=== PATIENT | male | born 1935 | race Caucasian/White ===

== ENCOUNTER 2021-03-01 16:15 | Emergency (ER) | payer OTHER ==
[~2021-03-01] VITALS: Ht 167.6 cm; Wt 68.0 kg
[~2021-03-01 16:15] MED LIST: ALBU.083IS IH; ALBU8HFA2 INH; ALBU90OI INH; ASPI81CH PO; ATECHL PO; ATEN50 PO; BUDE6HFA INH; CODE30 PO; COLE5P PO; COLESTIPOL HCL PO; CYAN1000 PO; FORM12IH IH; LISI5 PO; LORA10ER PO; MOME220I IH; MOMENI; MONT10T PO; MOXI400 PO; THEO300ERC PO; TIOT18 IH; VALS80 PO
[2021-03-01 16:45] LABS: BASOPHILS ABSOLUTE AUTO 0.04 K/mm3 (0.00-0.23); BASOPHILS PERCENT AUTO 1 % (0-2); EOSINOPHILS ABSOLUTE AUTO 0.85 K/mm3 (0.00-0.68); EOSINOPHILS PERCENT AUTO 13 % (0-6); Hematocrit 35.2 % (37.0-53.0); Hemoglobin 11.4 g/dL (13.5-17.5); IMMATURE GRAN ABSOLUTE AUTO 0.01 K/mm3 (0.00-0.10); IMMATURE GRAN PERCENT AUTO 0 % (0-1); LYMPHOCYTES ABSOLUTE AUTO 1.42 K/mm3 (0.84-5.20); LYMPHOCYTES PERCENT AUTO 22 % (21-46); MONOCYTES ABSOLUTE AUTO 0.73 K/mm3 (0.16-1.47); MONOCYTES PERCENT AUTO 12 % (4-13); Mean Corpuscular HGB Conc 32.4 g/dL (31.5-36.5); Mean Corpuscular Volume 96 fL (80-100); Mean Platelet Volume 11.3 fL (9.1-12.4); NEUTROPHILS PERCENT AUTO 52 % (41-73); Platelet Count 130 K/mm3 (150-400); RDW Coefficient Variation 12.4 % (11.7-14.2); RDW Standard Deviation 43.6 fL (35.1-46.3); Red Blood Cell Count 3.68 M/mm3 (4.30-5.90); White Blood Cell Count 6.35 K/mm3 (4.00-11.30)
[2021-03-01 17:03] LABS: Alanine Aminotransfer (ALT/SGP 14 U/L (12-78); Albumin, Blood 3.3 g/dL (3.4-5.0); Albumin/Globulin Ratio 1.1 (0.8-1.8); Alk Phos 57 U/L (50-136); Anion Gap 3 mmol/L (6-16); Aspartate Aminotrans (AST/SGOT 12 U/L (12-37); Bilirubin, Total 0.5 mg/dL (0.1-1.0); Blood Urea Nitrogen 34 mg/dL (8-24); Bun/Creatinine Ratio 27.2 (12.0-20.0); CO2, Blood 30 mmol/L (21-32); Calcium, Blood 9.1 mg/dL (8.5-10.1); Chloride, Blood 107 mmol/L (98-108); Creatinine, Blood 1.25 mg/dL (0.60-1.20); Globulin, Blood 2.9 g/dL (2.2-4.0); Glomerular Filtration Rate 55 (60-); Glucose, Blood 89 mg/dL (70-99); Potassium, Blood 4.3 mmol/L (3.5-5.5); Sodium, Blood 140 mmol/L (136-145); Total Protein, Blood 6.2 g/dL (6.4-8.2); Troponin I <0.015 ng/mL (0.000-0.040)
== END 2021-03-01 21:03 | disposition home or self-care (01) ==
LOC: ER 16:15
PROVIDERS: Student in an Organized Health Care Education/Training Program
DX: Z03.89 Encounter for observation for other suspected diseases and conditions ruled out (principal); I10 Essential (primary) hypertension; J44.9 Chronic obstructive pulmonary disease, unspecified; E78.5 Hyperlipidemia, unspecified; G30.9 Alzheimer's disease, unspecified; N40.0 Benign prostatic hyperplasia without lower urinary tract symptoms; F02.80 Dementia in other diseases classified elsewhere, unspecified severity, without behavioral disturbance, psychotic disturbance, mood disturbance, and anxiety; Z91.09 Other allergy status, other than to drugs and biological substances; Z79.82 Long term (current) use of aspirin; Z79.899 Other long term (current) drug therapy
CPT/HCPCS: 71045; 80053; 83880; 84484; 85025; 93005; 93010; 99285-25; J7030

== ENCOUNTER 2021-11-17 04:57 | Inpatient (IN) | payer OTHER ==
[~2021-11-17] VITALS: Ht 175.3 cm; Wt 60.2 kg
[~2021-11-17 04:57] MED LIST changes: -BUDE6HFA INH; +FLUT1DIS5 INH
[2021-11-17 06:21] LABS: BASOPHILS ABSOLUTE AUTO 0.03 K/mm3 (0.00-0.23); BASOPHILS PERCENT AUTO 0 % (0-2); EOSINOPHILS ABSOLUTE AUTO 0.14 K/mm3 (0.00-0.68); EOSINOPHILS PERCENT AUTO 2 % (0-6); Hemoglobin 12.6 g/dL (13.5-17.5); IMMATURE GRAN ABSOLUTE AUTO 0.04 K/mm3 (0.00-0.10); IMMATURE GRAN PERCENT AUTO 0 % (0-1); LYMPHOCYTES ABSOLUTE AUTO 0.56 K/mm3 (0.84-5.20); LYMPHOCYTES PERCENT AUTO 6 % (21-46); MONOCYTES ABSOLUTE AUTO 0.71 K/mm3 (0.16-1.47); MONOCYTES PERCENT AUTO 8 % (4-13); Mean Corpuscular HGB 29.9 pg (26.0-34.0); Mean Corpuscular Volume 100 fL (80-100); Mean Platelet Volume 12.4 fL (9.1-12.4); NEUTROPHILS ABSOLUTE AUTO 7.67 K/mm3 (1.96-9.15); NEUTROPHILS PERCENT AUTO 84 % (41-73); Platelet Count 138 K/mm3 (150-400); RDW Coefficient Variation 13.2 % (11.7-14.2); RDW Standard Deviation 48.4 fL (35.1-46.3); Red Blood Cell Count 4.21 M/mm3 (4.30-5.90); White Blood Cell Count 9.15 K/mm3 (4.00-11.30)
[2021-11-17 06:39] LABS: Albumin/Globulin Ratio 0.9 (0.8-1.8); Bilirubin, Total 0.7 mg/dL (0.1-1.0); Bun/Creatinine Ratio 21.5 (12.0-20.0); Creatinine, Blood 1.21 mg/dL (0.60-1.20); Globulin, Blood 3.4 g/dL (2.2-4.0); Potassium, Blood 4.3 mmol/L (3.5-5.5); Total Protein, Blood 6.4 g/dL (6.4-8.2)
[2021-11-17] MEDS ORDERED: METO25ER PO (12:03)
[2021-11-17] MEDS ORDERED: Vitamin C100 M1 PO ×2 (12:04→12:05)
[2021-11-17 13:12] LABS: Influenza A, PCR NEGATIVE (NEGATIVE); Influenza B, PCR NEGATIVE (NEGATIVE); Resp Syncytial Virus, PCR NEGATIVE (NEGATIVE); SARS-Cov-2 (COVID-19) PCR, MMC NEGATIVE (NEGATIVE)
--- NOTE | 2021-11-17 15:30 | NUR ---
RECEIVED TO FLOOR REPORT RECEIVED FROM ER VOLCANOLOGY PROFESSOR JEN. PT RECEIVED VIA GURBASILIA, PLACED IN UNIT BED, WEIGHT OBTAINED AND VS OBTAINED. VSS. ORIENTED TO ROOM & UNIT. ASSESSED AND MADE COMFORTABLE. MEDICATED WITH TYLENOL FOR C/O BACK PAIN. PT A&O X 2. PLACED CALL TO PT'S TO INFORM OF LOCATION OF PT. SHE REPORTS SHE WILL VISIT TOMORROW.
--- NOTE | 2021-11-17 17:56 | NUR ---
SHIFT SUMMARY PT IN CHAIR FOR DINNER MOD ASSIST X'S 2 WITH GB. PT WEAK THOUGH ABLE TO BEAR WEIGHT & PIVOT. PT REQUIRED ASSSIT TO EAT. PT DOES ATTEMPT TO GET OUT OF BED. CAMERA, BED & CHAIR ALARMS IN USE. PT IS CALM & APPEARS COMFORTABLE.
[2021-11-17] MEDS ORDERED: ALBU3IS INH (18:02)
[2021-11-17] MEDS ORDERED: BISA5EC PO (18:15)
[2021-11-17] MEDS ORDERED: DONEPEZIL HCL10 MG PO (18:15)
[2021-11-17] MEDS ORDERED: ZOCOR20 MG PO ×2 (18:16→20:41)
[2021-11-17] MEDS ORDERED: TRAM50 PO (18:18)
--- NOTE | 2021-11-17 19:45 | NUR ---
PHYSICIAN COMMUNICATION CONTACTED DR. ALCANTAR TO NOTIFY HIM THAT THE PATIENT IS CONFUSED AND REFUSING TO WEAR HIS OXYGEN TUBING, AND THAT HIS O2 SATS DROP INTO THE 70'S WITHOUT HIS OXYGEN ON. DR ALCANTAR ORDERED SOFT WRIST RESTRAINTS. CONTACTED PATIENT'S , RUDY, TO NOTIFY HER OF NEED FOR RESTRAINTS AND SHE IS AGREEABLE.
[2021-11-17] MEDS ORDERED: ASPI325EC PO (20:31)
[2021-11-17] MEDS ORDERED: MIRT15 (20:35)
[2021-11-17] MEDS ORDERED: MIRT15 PO (20:37)
[2021-11-17] MEDS ORDERED: SENN187 PO (20:40)
[2021-11-18 04:52] LABS: BASOPHILS PERCENT AUTO 0 % (0-2); EOSINOPHILS PERCENT AUTO 0 % (0-6); Hematocrit 42.5 % (37.0-53.0); Hemoglobin 12.8 g/dL (13.5-17.5); IMMATURE GRAN ABSOLUTE AUTO 0.03 K/mm3 (0.00-0.10); IMMATURE GRAN PERCENT AUTO 1 % (0-1); LYMPHOCYTES ABSOLUTE AUTO 0.29 K/mm3 (0.84-5.20); LYMPHOCYTES PERCENT AUTO 5 % (21-46); MONOCYTES ABSOLUTE AUTO 0.25 K/mm3 (0.16-1.47); MONOCYTES PERCENT AUTO 4 % (4-13); Mean Corpuscular HGB 29.9 pg (26.0-34.0); Mean Corpuscular HGB Conc 30.1 g/dL (31.5-36.5); Mean Corpuscular Volume 99 fL (80-100); Mean Platelet Volume 12.4 fL (9.1-12.4); NEUTROPHILS ABSOLUTE AUTO 5.69 K/mm3 (1.96-9.15); NEUTROPHILS PERCENT AUTO 91 % (41-73); Platelet Count 134 K/mm3 (150-400); RDW Coefficient Variation 13.2 % (11.7-14.2); RDW Standard Deviation 47.8 fL (35.1-46.3); Red Blood Cell Count 4.28 M/mm3 (4.30-5.90); White Blood Cell Count 6.26 K/mm3 (4.00-11.30)
[2021-11-18 05:08] LABS: Anion Gap 6 mmol/L (6-16); Blood Urea Nitrogen 30 mg/dL (8-24); Bun/Creatinine Ratio 28.6 (12.0-20.0); CO2, Blood 30 mmol/L (21-32); Calcium, Blood 9.1 mg/dL (8.5-10.1); Chloride, Blood 106 mmol/L (98-108); Creatinine, Blood 1.05 mg/dL (0.60-1.20); Glomerular Filtration Rate >60 (60-); Glucose, Blood 101 mg/dL (70-99); Potassium, Blood 4.6 mmol/L (3.5-5.5); Sodium, Blood 142 mmol/L (136-145)
--- NOTE | 2021-11-18 05:18 | NUR ---
SHIFT SUMMARY PATIENT ALERT AND ORIENTED TO SELF ONLY. SHOWED NO SIGNS OF PAIN OR SHORTNESS OF BREATH. CURRENTLY IN SOFT WRIST RESTRAINTS. NO ACUTE ISSUES NOTED OVERNIGHT. BED IN LOWEST POSITION WITH WHEELS LOCKED AND ALARM ON. CALL LIGHT WITHIN REACH. REPORT GIVEN TO ONCOMING RN.
--- NOTE | 2021-11-18 17:33 | NUR ---
SHIFT SUMMARY: PATIENT RESTS IN BED OR IN THE CHAIR THROUGHOUT THE DAY. HE REQUIRED FEEDING ASSISTANCE AT MEALTIMES. PT IS ABLE TO TAKE HIS MEDICATIONS WHOLE WITH APPLESAUCE. PT IS VERY WEAK, SO BED AND CHAIR ALARMS ARE IN USE. AT THE BEGINNING OF MY SHIFT, THE PATIENT WAS IN SOFT WRIST RESTRAINTS BECAUSE HE WAS ATTEMPTING TO PULL HIS NC OFF, BUT RESTRAINTS WERE REMOVED AND THE PATIENT HAS NOT BEEN PULLING OFF HIS OXYGEN. PT WAS ABLE TO BE ON ROOM AIR EARLIER TODAY, BUT IS NOW ON 1 L VIA NC. PT MEDICATED WITH TYLENOL AND TRAMADOL FOR BACK PAIN. PT IS NOW RESTING COMFORTABLY IN BED.
--- NOTE | 2021-11-18 18:56 | NUR ---
Case Conference: Met with pt, spouse Mary and their granddaughter. The pt has been living at home with Mary. He has a 2 year history of dementia and has been getting more aggressive with her. Pt has also lost 30 to 40lbs over the past several months. Per Dr. Clarke's note, she feels he is hospice appropriate. Pt is a . Mary states she knows she can't care for him on her own any longer, and is interested in discussing Home Health, and Hospice. We discussed both, and she is leaning towards hospice at this time. [facility]. They are unsure about comfort care in the hospital, I will revisit this tomorrow.
--- NOTE | 2021-11-19 06:06 | NUR ---
SHIFT SUMMARY PATIENT ALERT AND ORIENTED TO SELF. HAD NO ACUTE ISSUES NOTED OVERNIGHT. CALL LIGHT WITHIN REACH. REPORT GIVEN TO ONCOMING RN.
--- NOTE | 2021-11-19 11:13 | NUR ---
Discussed pt's current code status with Mary this morning. Mary has made the decision to begin comfort care for the patient, as well as changing his code status to DNR. She states feeling relief that pt will be placed on hospice, and cared for in a facility setting so that she is no longer having to function as his care provider, as she is unable to continue in that role.
--- NOTE | 2021-11-20 02:27 | NUR ---
SHIFT SUMMARY PT REMAINS ON COMFORT CARE, RESTING COMFORTABLY. REPOSITIONED Q2H. USING URINAL WITH SOME DRAINAGE IN ATTENDS, CHANGED ATTENDS PRN. NO PAIN REPORTED THROUGHOUT. VERY LITTLE INTAKE. WILL CONTINUE TO MONITOR AND REPORT TO ONCOMING RN.
--- NOTE | 2021-11-20 07:17 | NUR ---
Rn summary: I assumed care at 0300. Patient has rested without distress. O2 2L for comfort. Was repositioned about 0500. No other changes.
--- NOTE | 2021-11-20 09:21 | NUR ---
ASSUMED CARE OF THIS PT AT 7 AM FROM PRIMARY [facility] RN. PT WAS RESTING COMFORTABLY, ON 2 L O2 FOR COMFORT, NO DYSPNEA, AROUSES EASILY TO VERBAL STIMULI. NANNETTE. PT REMAINS ON COMFORT CARE, ORDER FOR COMFORT CARE RECIEVED FROM DR. BARKER. WILL CONTINUE TO MONITOR THROUGOUT SHIFT.
--- NOTE | 2021-11-20 09:34 | NUR ---
Comfort Care Visit Pt resting in bed and appears comfortable. Offered supportive visit, and gentle voice. Pt appears comfortable with no S/S of distress at this time. Spoke with Primary RN Luzmaria and discussed case. No concerns reported at this time. Palliative Care will remain available.
--- NOTE | 2021-11-20 10:57 | NUR ---
PT REMAINS ON COMFORT CARE. PT IS RESTING COMFORTABLY. O2 IN USE FOR COMFORT. PT IS WEARING ATTENDS, CHANGE ATTENDS PRN. NO PAIN REPORTED BY PATIENT. PT RESOSITIONED Q2 HOURS. WILL CONTINUE TO MONITOR AN WILL REPORT TO THE ONCOMING RN.
--- NOTE | 2021-11-20 11:58 | NUR ---
PT REMAINS ON COMFORT CARE, RESTING COMFORTABLY. NO PAIN STATED BY PT. PT IS ON O2 2 L FOR COMFORT. PT IS RESPOSITIONED Q 2 HOURS. PT DEPENDS CHANGED PRN. PT WILL CONTINUE TO BE MONITORED UNTIL CHANGE OF SHIFT. NO DISTRESS NOTED.
--- NOTE | 2021-11-20 14:57 | NUR ---
PT REMAINS ON COMFORT CARE. PT IS AOX1. PT STATES NO PAIN IS PRESENT. PT IS RESTING COMFORTABLY. PT HAD FAMILY VISIT THIS AFTERNOON. PT IS ON 2L OF O2 FOR COMFORT. PT IS REPOSITION Q2 HOURS. PT'S DEPENDS ARE CHANGED PRN. PT COMMUNICATED HE HAD CERTAIN FOOD HE DID NOT LIKE, THOSE FOODS WERE DOCUMENTED AND A REQUEST TO THE KITCHEN WAS SENT. WILL CONTINUE TO MONITOR UNTIL NOC SHIFT TRANSFER.
--- NOTE | 2021-11-20 15:54 | NUR ---
PT REMAINS ON COMFORT CARE. PT STATES NO PAIN IS PRESENT. PT IS RESTING COMFORTABLY. PT HAS NO COMPLAINTS AT THIS TIME. PT IS ON 2L OF O2 FOR COMFORT. PT'S DEPENDS ARE CHANGED PRN. PT REQUIRES ASSISTANE WITH ALL ADL'S. PT [facility] OR WITH [facility]ED WITH [facility]. WILL CONTINUE TO MONITOR UNTIL NOC SHIFT TRANSFER.
--- NOTE | 2021-11-20 16:30 | NUR ---
SHIFT SUMMARY PT REMAINS ON COMFORT CARE. PT HAS BEEN RESTING COMFORTABLY THE ENTIRE SHIFT. PT HAD MULTIPLE FAMILY MEMBERS VISIT THROUGHOUT THE DAY. HE IS CURRENTLY ON 2L OF O2 FOR COMFORT. PT STATED THAT HE IS NOT IN ANY PAIN OR DISCOMFORT. HE AROUSES EASILY AND ANSWERS QUESTIONS. HE HAS NO DYSPNEA OR SOB. AOX1. PT IS TURN Q2, RECIEVED A BED BATH TODAY. PT'S APPETITE IS MINIMAL BUT WILL DRINK H20 IN SMALL AMOUNTS. PT MADE SPECIFIC FOOD REQUESTS AND THOSE WERE PUT INTO THE COMPUTER AND COMMUNICATED TO THE KITCHEN. WILL CONTINUE TO MONITOR UNTIL NOC SHIFT TRANSFER.
--- NOTE | 2021-11-20 17:29 | NUR ---
I HAVE READ AND REVIEWED STUDENT NURSE OUMOU ROGERS AND AM IN AGREEMENT WITH ALL.
--- NOTE | 2021-11-20 18:13 | NUR ---
PT CONTINUES COMFORT CARE. PT IS COMFORTABLY RESTING AND DOES NOT COMPLAIN OF ANY PAIN. PT IS NOT CURRENTLY WEARING O2 BUT DOES KNOW IT IS AVAILABLE FOR COMFORT. PT HAS DEPENDS CHANGED PRN. PT IS REPOSITIONED Q 2 HOURS. PT SITTING UP COMFORTABLY, WATCHING TELEVISION. WILL CONTINUE TO MONITOR UNTIL NOC SHIFT TRANSFER.
--- NOTE | 2021-11-21 03:57 | NUR ---
SHIFT SUMMARY PT ON COMFORT CARE. PT IS PLEASANTLY CONFUSED. REPOSITIONING DONE OFTEN PT WILL TOLERATE. PT STS HE IS NOT IN PAIN. PT SLEPT OFF AND ON THROUGHOUT THE NIGHT. PT ON 2L O2 NC OFF AND ON. PT TAKES NC OFF AT TIMES. NO ACUTE CHANGES TO PT CONDITION. PT HAS CALL LIGHT WITHIN REACH AND HAS BEEN SHOWN HOW TO USE IT. WILL CONTINUE TO MONITOR.
--- NOTE | 2021-11-21 08:32 | NUR ---
PT REMAINS ON COMFORT CARE. PT IS CURRENTLY SLEEPING PEACEFULLY. PT HAS DEPENDS CHANGED PRN. PT IS REPOSITIONED Q 2 HOURS. PT IS NOT CURRENTLY ON 02 BUT HAS AN ORDER FOR 2 L O2 FOR COMFORT. NO ACUTE CHANGES AT THIS TIME. CALL LIGHT IS WITHIN REACH. WILL CONTINUE TO MONITOR AND ASSESS THROUGHOUT THE SHIFT.
--- NOTE | 2021-11-21 08:53 | NUR ---
Comfort Care Visit Pt resting in bed with his eyes closed. Pt left undisturbed at this time. Pt appears comfortable with no S/S of distress at this time. Spoke with Primary RN Luzmaria and discussed case. Pt appears comfortable with no S/S of distress at this time.
--- NOTE | 2021-11-21 10:12 | NUR ---
PT REMAINS ON COMFORT CARE. PT DENIES NO PAIN AT THIS TIME. PT IS RESTING COMFORTABLY AND WATCHING TELEVISION. PT HAS AN ORDER FOR 2L O2 FOR COMFORT. PT IS AOX1. PT HAS DEPENDS CHANGED PRN. HE HAS BEEN GIVEN WARM BLANKETS. CALL LIGHT WAS PLACED WITHIN REACH.
--- NOTE | 2021-11-21 12:02 | NUR ---
PT REMAINS ON COMFORT CARE. PT STATED HE WAS HAVING STABBING BACK PAIN, MEDICATED PER EMAR WITH TRAMADOL. PT STATED HIS PAIN HAS GONE FROM A 5 TO A 2. HE IS RESTING COMFORTABLY IN HIS BED. NO DYSPNEA. HE HAS 2L O2 FOR COMFORT BUT IS NOT USING IT CURRENTLY. PT IS AOX1. PT HAS DEPENDS CHANGED PRN. CALL LIGHT IS WITHIN REACH. PT CURRENTLY HAS A VISITOR. WILL CONTINUE TO MONITOR AND ASSESS UNTIL NOC SHIFT NURSE.
--- NOTE | 2021-11-21 14:48 | NUR ---
PT STATED HE WAS IN PAIN. REFERRED TO EMAR AND MEDICATED PER EMAR. PT STATES HE HAS A PAIN SCORE OF A 1. PT WAS RESPOSTIONED Q 2 HOURS. PT DEPENDS CHANGED PRN. PT HAD FAMILY VISIT. PT PROVIDED INPUT TO WHAT HE WANTED TO WATCH ON TELEVISION. PT IS NOW RESTING COMFORTABLY AND ATTEMPTING TO SLEEP. PT IS AOX1. PT HAS 2 L O2 NC FOR COMFORT. PT RECIEVED A NEBULIZER TX AT THE FAMILIES REQUEST, STATING HE FEELS BETTER AFTER A TX. RT PERFORMED THE TX. WILL CONTINUE TO MONITOR AND ASSESS FOR THE REMAINDER OF THE SHIFT UNTIL NOC SHIFT ARRIVES.
--- NOTE | 2021-11-21 16:19 | NUR ---
PT REMAINS ON COMFORT CARE. PT DENIES ANY PAIN AT THIS TIME. PT IS RESTING COMFORTABLY IN HIS BED, WATCHING TELEVISION. PT HAS AN ORDER FOR 2L O2 NEEDED FOR COMFORT. HIS DEPENDS ARE CHANGED PRN. PT IS CONSISTENTLY ASKED IF HE WOULD LIKE ANY DRINKS OR SNACKS THROUGHOUT THE SHIFT. PT STATED HE HAS NO COMPLAINTS OR REQUESTS AT THIS TIME. WILL CONTINUE TO MONITOR AND ASSESS UNTIL NOC SHIFT ARRIVES.
--- NOTE | 2021-11-21 16:42 | NUR ---
DAY SHIFT SUMMARY PT IS ON COMFORT CARE AND IS A DNR. PT HAS BEEN PLEASANT ALL SHIFT. AOX1. PT STARTED THE SHIFT RESTING. PT RECIEVED MEDICATIONS THIS AM AND ATE A MODERATE AMOUNT OF BREAKFAST. LATE MORNING, PT STATED HIS BACK WAS IN PAIN. PT WAS ADMINISTERED TRAMADOL FOR THE PAIN. PT HAD FAMILY VISIT. WHILE FAMILY WAS HERE, PT STATED HIS BACK PAIN HAD NOT RESOLVED. PT WAS GIVEN TYLENOL 650MG. PT NOW STATES NO PAIN IS PRESENT. PT DEPENDS WERE CHANGED PRN. PT HAS PRN ORDER FOR 2L O2 FOR COMFORT. HE HAS USED THE O2 MINIMALLY THROUGHOUT THE SHIFT. PT WANTED TO REMOVE HIS GOWN BECAUSE HE STATED HE WAS TOO HOT. PT IS NOW RESTING COMFORTABLY, WATCHING TELEVISION. WILL CONTINUE TO MONITOR AND ASSESS UNTIL NOC SHIFT TRANSFER.
--- NOTE | 2021-11-21 18:06 | NUR ---
PT REMAINS ON COMFORT CARE. PT IS NOT IN DISTRESS, DENIES ANY PAIN AT THIS TIME. PT IS EATING DINNER AND RESTING COMFORTABLY IN HIS BED. PT'S DEPENDS ARE CHANGED PRN. PT HAS AN ORDER FOR 2 L O2 FOR COMFORT. PT HAD FAMILY VISIT TODAY. PT IS AOX1. WILL CONTINUE TO ASSESS AND MONITOR UNTIL NOC SHIFT ARRIVES.
--- NOTE | 2021-11-21 18:21 | NUR ---
I READ AND REVIEWED ALL DOCUMNTATION ON THIS PATIENT BY OUMOU Keith STUDENT NURSE AND AM IN AGREEMNT WITH HER ASSESSMENTS.
--- NOTE | 2021-11-22 04:02 | NUR ---
SHIFT SUMMARY: PATIENT IS ON COMFORT CARE, PAIN TREATED PER EMAR. PATIENT TURNS SELF AT TIMES. STAFF ASSISTS WITH TURNS TOELRATED. INCONT OF URINE. HAS NOT USED O2 THIS SHIFT. CAN VERBALIZE NEEDS, WITHDRAWN. AWAITING HOSPICE PLACEMENT. WCTM.
--- NOTE | 2021-11-22 18:11 | NUR ---
SHIFT SUMMARY PATIENT ON COMFORT CARE. Q2H TURNS TOLERATED. INCONT OF URINE. PATIENT REFUSING TO EAT AND ONLY TAKING SIPS OF WATER. FAMILY CAME TO VISIT AND ATTEMPTED TO GET PATIENT TO EAT. PATIENT VOMITED AFTER FAMILY FED HIM. MEDICATED FOR PAIN AND NAUSEA PER MAR. PATIENT BECAME ANXIOUS AND BEGAN HALLUCINATING THAT HE IS AT HIS GREEN HOUSE AND ATTEMPTED TO GET OUT OF BED. MEDICATED PER MAR. AWAITING TO GO HOME ON HOSPICE TOMORROW.
--- NOTE | 2021-11-23 04:19 | NUR ---
SHIFT SUMMARY ADMITTED FOR PNEUMONIA. DNR CODE. COMFORT CARE. PLAN IS FOR DC HOME W/HOSPICE. ON BEDREST. IMPULSIVE. BED ALARM IN PLACE. [facility] PATIENT. PT RESTED CALMLY THROUGHOUT SHIFT, NO S/SX OF DISCOMFORT. Q 2 TURNS. HX: ALZHEIMERS, FALLS.
--- NOTE | 2021-11-23 13:51 | NUR ---
Upon recieving a request for end of life prayer, I visit family. I provide a brief life review of pt, grief support to family and prayer. I then uptain the preferred home information ([facility] in [facility]) and notifiy pt's RN. Family respond well to all interventions and show signs of being comforted. I will continue to remain available to family.
--- NOTE | 2021-11-23 14:06 | NUR ---
PT PASSED APPROX [id number]. DR. BARKER NOTIFIED. FAMILY AT BEDSIDE, PASTORAL SERVICES PROVIDED.
--- NOTE | 2021-11-23 18:56 | NUR ---
Pt transitioned review of care with outpatient case manager.
== END 2021-11-23 13:10 | DRG 193 ==
LOC: ER 04:57 → MEDS 13:30
PROVIDERS: Emergency Medicine; Student in an Organized Health Care Education/Training Program; ADMIT Internal Medicine
DX: J18.9 Pneumonia, unspecified organism (principal); J96.01 Acute respiratory failure with hypoxia; J44.0 Chronic obstructive pulmonary disease with (acute) lower respiratory infection; J44.1 Chronic obstructive pulmonary disease with (acute) exacerbation; F05 Delirium due to known physiological condition; Z66 Do not resuscitate; Z51.5 Encounter for palliative care; F02.81 Dementia in other diseases classified elsewhere, unspecified severity, with behavioral disturbance; Z20.822 Contact with and (suspected) exposure to COVID-19; Z78.1 Physical restraint status; G30.9 Alzheimer's disease, unspecified; M54.6 Pain in thoracic spine; N40.0 Benign prostatic hyperplasia without lower urinary tract symptoms; M80.08XD Age-related osteoporosis with current pathological fracture, vertebra(e), subsequent encounter for fracture with routine healing; I10 Essential (primary) hypertension; E78.5 Hyperlipidemia, unspecified; G89.29 Other chronic pain; Z91.09 Other allergy status, other than to drugs and biological substances; Z79.899 Other long term (current) drug therapy; Z79.82 Long term (current) use of aspirin; I25.2 Old myocardial infarction; W18.30XA Fall on same level, unspecified, initial encounter
CPT/HCPCS: 0241U; 36415; 70450; 71045; 72070; 72125; 80048; 80053; 85025; 93005; 93010; 94640; 94664; 94760; 94762; 96374; 97116; 97162; 97165; 97530; 97535; 99285-25; A9270; J0696; J1650; J2405; J7512